=== PATIENT | female | born 1945 | race Caucasian/White ===

== ENCOUNTER 2024-10-21 16:30 | Emergency (ER) | payer MEDICARE, OTHER ==
[2024-10-21 18:06] VITALS: RESP 16; TEMP 98.1
[2024-10-21 18:07] VITALS: BP 133/69; PULSE 84; O2SAT 100
--- NOTE | 2024-10-21 18:10 | ERPHSYRPT ---
- History of Present Illness Time Seen by Provider: 10/21/24 17:50 Source: patient Exam Limitations: no limitations Patient Subjective Stated Complaint: Pts daughter states they are attempting to get pt placed in assisted living at [facility] and was told due to pt not nuñez ving a family doctor and not being seen by a doctor in four years pt has to be seen by a doctor. [facility] See nurses note for further details. Triage Nursing Assessment: Pt alert, aware she is at a hospital but unsure which. Pt unsure of day of week or date of but does know her name. Respirations easy/nonlabored. Skin w/p/d. Ambulated to ED cot without difficulty. Lung sounds clear throughout anteriorly and posteriorly. Abdomen soft/round/nontender. Active bowel sounds in all four quads. Severity: mild Modifying Factors: Improves With: nothing Allergies/Adverse Reactions: No Known Drug Allergies Allergy (Unverified 10/21/24 17:31) Home Medications: No Reportable Medications [No Reported Medications] 10/21/24 [History] Hx Tetanus, Diphtheria Vaccination/Date Given: No Hx Influenza Vaccination/Date Given: No Travel Risk - International Travel Have you traveled outside of the country in past 3 weeks: No - Emerging Infectious Disease Are you exhibiting symptoms associated with any current EIDs: No - Review of Systems Constitutional: No Symptoms Eyes: No Symptoms Ears, Nose, & Throat: No Symptoms Respiratory: No Symptoms Cardiac: No Symptoms Abdominal/Gastrointestinal: No Symptoms Genitourinary Symptoms: No Symptoms Musculoskeletal: No Symptoms Skin: No Symptoms Neurological: No Symptoms Psychological: No Symptoms - Past Medical History Pertinent Past Medical History: No - Past Surgical History Past Surgical History: No - Social History Smoking Status: Never smoker Exposure to second hand smoke: No Drug Use: none - Social Determinants of Health Will the patient participate in the screening: Declined to provide - Nursing Vital Signs Nursing Vital Signs: Initial Vital Signs Temperature 98.1 F 10/21/24 17:17 Pulse Rate 82 10/21/24 17:17 Respiratory Rate 16 10/21/24 17:17 Blood Pressure 169/58 10/21/24 17:17 O2 Sat by Pulse Oximetry 99 10/21/24 17:17 Pain Scale Pain Intensity 0 - Physical Exam General Appearance: no apparent distress Eye Exam: PERRL/EOMI Ears, Nose, Throat Exam: normal ENT inspection Neck Exam: normal inspection Respiratory Exam: normal breath sounds Cardiovascular Exam: regular rate/rhythm Gastrointestinal/Abdomen Exam: soft, normal bowel sounds Extremity Exam: normal inspection Skin Exam: normal color, warm, dry SpO2: 100 - Progress Progress Note: 10/21/24 18:09Patient's daughter brought her here for a physical exam as she needs placement in the skilled nursing in a dementia unit, patient denies any active complaints at this time. Daughter was instructed to follow-up with medical records for visit history to present to the skilled nursing. Patient has no active complaints at this time Medical Desision Making - Discussion of managment Agreed on:: need for follow-up - Departure Departure Disposition: Home Clinical Impression: Dementia Condition: Stable Critical Care Time: No Referrals: DOCTOR,NO FAMILY [Primary Care Provider] - Follow up/PCP as directed
== END 2024-10-21 18:31 | disposition home or self-care (01) ==
LOC: ED 16:30
DX: F03.90 Unspecified dementia, unspecified severity, without behavioral disturbance, psychotic disturbance, mood disturbance, and anxiety (principal)
CPT/HCPCS: 99281